=== PATIENT | female | born 1985 | race Caucasian/White ===

== ENCOUNTER 2017-10-10 10:30 | Observation (INO) | payer BC ==
[2017-10-10] MEDS ORDERED: Acetaminophen TAB* 325 MG PO PRN (11:02)
[2017-10-10] MEDS ORDERED: Morphine INJ* 2 MG/ML 1 ML CARPUJECT IV PRN ×2 (11:02→14:37)
[2017-10-10] MEDS ORDERED: NS 0.9% 1000 ML* 1,000 ML IV SCH (11:15)
[2017-10-10 12:01] LABS: ABS Basophils 0.1 10^3/ul (0-0.2); ABS Eosinophils 0.1 10^3/ul (0-0.6); ABS Lymphocytes 2.5 10^3/ul (1.0-4.8); ABS Monocytes 0.9 10^3/ul (0-0.8); ABS Neutrophils 6.4 10^3/ul (1.5-7.7); ABS Nucleated RBC 0 10^3/ul; Hematocrit 43 % (35-47); Lymphocyte % 25.7 % (25-47); Mean Corpuscular HGB Conc 35 g/dl (31-36); Mean Corpuscular Hemoglobin 31 pg (27-31); Mean Corpuscular Volume 88 fL (80-97); Mean Platelet Volume 7.6 um3 (7.4-10.4); Nucleated Red Blood Cells % 0.1; Platelet Count 313 10^3/ul (150-450); Red Blood Count 4.86 10^6/ul (4.0-5.4); Red Cell Distribution Width 13 % (10.5-15); White Blood Count 9.9 10^3/ul (3.5-10.8)
[2017-10-10 12:19] LABS: EGFR Non-African American 86.7 (>60)
[2017-10-10] MEDS ORDERED: Iohexol 300* (CONTRAST) 10 ML SDV IV ONE (13:07)
--- NOTE | 2017-10-10 14:17 | RAD ---
CLINICAL HISTORY: Abdominal pain, appendicitis COMPARISON: October 05, 2017 TECHNIQUE: Multiple contiguous axial CT scans were obtained of the abdomen and pelvis after the administration of intravenous contrast. Coronal and sagittal multiplanar reformations are submitted for review. Oral contrast was administered. Delayed images were obtained through the abdomen and pelvis. FINDINGS: LUNG BASES: The lung bases are clear. LIVER: The liver is diffusely low in attenuation compared to the spleen. There are no focal hepatic parenchymal masses. BILE DUCTS: There is no intrahepatic or extrahepatic biliary dilatation. GALLBLADDER: The gallbladder is normal, without pericholecystic inflammatory change. PANCREAS: The pancreas is normal, without mass or ductal dilatation. SPLEEN: Normal in size and appearance. UPPER GI TRACT: The upper GI tract is unremarkable. SMALL BOWEL AND MESENTERY: The small bowel is normal in contour, course, and caliber. There is no obstruction or dilatation. COLON: The colon is normal in contour, course, caliber. There is no pericolonic inflammatory change. There is a tubular, vermiform, hollow viscus that is blind ending, and originates from the cecum, consistent with the appendix. This measures up to 60.7 cm in caliber, decreased from the previous examination. There is gas within the lumen of the appendix. There is no appreciable appendicolith. There is no periappendiceal inflammatory change. The appendix is best seen on coronal images 34 through 37. ADRENALS: Normal bilaterally. KIDNEYS: The kidneys are normal in shape, size, contour, and axis. There is no hydronephrosis or nephrolithiasis. BLADDER: The bladder is smooth in contour. PELVIC ORGANS: The uterus and adnexa are grossly normal for technique. AORTA: The aorta is normal. IVC: Unremarkable LYMPH NODES: There is no lymphadenopathy by size criteria. ABDOMINAL WALL: There is no evidence for abdominal wall hernia. BONES AND SOFT TISSUES: The bones and soft tissues are unremarkable. OTHER: None IMPRESSION: THE APPENDIX IS AT THE UPPER LIMITS OF NORMAL IN SIZE, BUT HAS DECREASED IN CALIBER COMPARED TO OCTOBER 05, 2017. THERE IS NO PERIAPPENDICEAL INFLAMMATORY CHANGE. FATTY INFILTRATION OF LIVER.
[2017-10-10] MEDS ORDERED: Ondansetron INJ* 2 MG/ML VIAL IV PRN (14:31)
[2017-10-10] MEDS ORDERED: Famotidine IV* 10 MG/ML 2 ML (20 mg) IV ONE (14:36)
[2017-10-10] MEDS ORDERED: Buffered Lidocaine 0.9% SYRIN* 5 ML/SYR SYRINGE INTRADERM ONE (14:36)
[2017-10-10] MEDS ORDERED: Naloxone* 0.4 MG/ML 1 ML VIAL IV PRN (14:37)
[2017-10-10] MEDS ORDERED: PROCHLORPERAZINE INJ 5 MG/ML 2 ML VIAL IV PRN (14:37)
[2017-10-10] MEDS ORDERED: fentaNYL* 50 MCG/ML 2 ML VIAL (100 MCG VIAL) IV PRN (14:37)
[2017-10-10] MEDS ORDERED: Scopolamine 1.5 mg* PATCH TRANSDERM PRN (14:37)
[2017-10-10] MEDS ORDERED: DiMENhydriNATE IV* 50 MG/ML VIAL IV PUSH PRN (14:37)
[2017-10-10] MEDS ORDERED: Midazolam* 1 MG/ML 5 ML VIAL (5 MG) ONE (14:44)
[2017-10-10] MEDS ORDERED: fentaNYL* 50 MCG/ML 2 ML VIAL (100 MCG VIAL) ONE (14:44)
[2017-10-10] MEDS ORDERED: Atracurium* 10 MG/ML 10 ML VIAL ONE (14:44)
--- NOTE | 2017-10-10 14:47 | PN ---
Progress Note - Progress Note Date of Service: 10/10/17 SOAP: Subjective: CT scan done reviewed just now-some minimal thickening and mild dilation of the appendix, consistent with the recent diagnosis of appendicitis. No abscess, fluid or other acute change noted in the study. I reviewed these findings with her and her . She continues to complain of fairly severe right lower quadrant abdominal pain and nausea that has not improved on 5 days of oral antibiotics. She has had a poor appetite and feels sick. Her exam now shows right lower abdominal pain with guarding and rigidity in the right lower quadrant. I feel that she has "failed" antibiotic treatment of her acute appendicitis and I think that we need to consider appendectomy. I don't think that further oral or IV antibiotics will probably improve her symptoms and this point, although we do not have a great deal of experience here with the non-operative management of uncomplicated treatment of acute appendicitis I think that most of the literature would support proceeding with appendectomy if the patient was not improving after this duration of antibiotic treatment. My recommendation is laparoscopic appendectomy today. I discussed the procedure with them and they would like to proceed in this direction. PLAN: Laparoscopic appendectomy, possible open appendectomy today. The procedure was discussed with her, and the risks of, but not limited to, of bleeding, infection, abscess, injury to peritoneal and retroperitoneal structures, possibility of an open procedure, anesthesia and blood clots were discussed. She will give her consent to proceed.
[2017-10-10] MEDS ORDERED: Famotidine IV* 10 MG/ML 2 ML (20 mg) ONE (14:48)
[2017-10-10] MEDS ORDERED: Bupivacaine 0.25% SDV* 30 ML ONE (15:26)
[2017-10-10] MEDS ORDERED: Lidocaine 2% PF * 5 ML VIAL ONE (16:01)
[2017-10-10] MEDS ORDERED: Propofol* 10 MG/ML 20 ML BTL IV PUSH ONE (16:01)
[2017-10-10] MEDS ORDERED: Morphine INJ* 10 MG/ML 1 ML CARPUJECT ONE (16:01)
[2017-10-10] MEDS ORDERED: PROCHLORPERAZINE INJ 5 MG/ML 2 ML VIAL ONE (16:01)
[2017-10-10] MEDS ORDERED: Ketorolac INJ* 30 MG/ML 1 ML VIAL ONE ×2 (16:01→16:51)
[2017-10-10] MEDS ORDERED: Dexamethasone IV* 4 MG/ML 1 ML (4 MG) ONE (16:01)
[2017-10-10] MEDS ORDERED: EPHEDrine (Pressors)* 50 MG/ML VIAL ONE (16:01)
[2017-10-10] MEDS ORDERED: Glycopyrrolate IV* 0.2 MG/ML 1 ML VIAL ONE (16:01)
[2017-10-10] MEDS ORDERED: Scopolamine 1.5 mg* PATCH ONE (16:01)
[2017-10-10] MEDS ORDERED: Ondansetron INJ* 2 MG/ML VIAL ONE (16:01)
[2017-10-10] MEDS ORDERED: oxyCODONE/Acetamin 5/325 MG* TAB ONE (17:35)
[2017-10-10] MEDS: oxyCODONE/Acetamin 5/325 MG* TAB PO PRN ×2 (17:37→17:38)
[2017-10-10 18:47] VITALS: BP 116/76
--- NOTE | 2017-10-11 14:48 | OP ---
CC: Dr. Shima Brito * DATE OF OPERATION: 10/10/17 - ROOM #351 DATE OF : 87 SURGEON: Efren Perales MD [employer] ARCHITECT: Bailey Richmond NP ANESTHESIOLOGIST: Dr. Adams. ANESTHESIA: General with local. PRE-OP DIAGNOSIS: Acute appendicitis. POST-OP DIAGNOSIS: Acute appendicitis. OPERATIVE PROCEDURE: Laparoscopic appendectomy. ESTIMATED BLOOD LOSS: Minimal. WOUND CLASSIFICATION: Three. COMPLICATIONS: None. DRAINS: None. SPECIMEN: Appendix. FINDINGS: The appendix was thickened and discolored with edematous mesentery consistent with acute appendicitis. No evidence of gangrene, perforation or abscess. BRIEF HISTORY: Mrs. Astrid Zarco is a 31-year-old woman who was referred to the office today. She had been in [place], [place] last weekend where she developed abdominal discomfort, was seen in the emergency room, had a CAT scan there; it was reviewed and read as acute appendicitis. She was treated with IV and oral antibiotics, after 24 hours discharged home with followup here back in [place] where she lives. This whole week she has been having persistent right lower quadrant abdominal pain, anorexia with some nausea, but no fever, shakes or chills. I saw her for the first time in the office this morning and a laboratory workup was unremarkable with a normal white blood cell count of 9. She had significant pain in the right lower quadrant and a CT scan was repeated to rule out abscess or perforation and there was a mildly thickened appendiceal wall without evidence of abscess, extraluminal air or fluid, slightly less inflammation than that study done last weekend. After a long discussion with the patient and her , it was felt that she is not responding to oral antibiotics and we have decided to proceed with a laparoscopic appendectomy for definitive treatment of what appears to be acute appendicitis. DESCRIPTION OF PROCEDURE: Written informed consent was obtained, the abdomen was marked with indelible ink. I did not give preoperative antibiotics. She was taken to the operating room, placed in the supine position. Sequential compression devices and warming blanket were applied. The abdomen was prepped and draped in the usual sterile fashion. Time-out verification was completed. Initially, a vertical incision was made just below the umbilicus at the midline , and the peritoneal cavity was entered under direct vision. A 12-mm trocar was inserted. The abdomen was insufflated to 15 mmHg. Under direct vision, a 5 mm port was placed in the left lower abdominal wall and a second 5 mm port was placed in the suprapubic position. Upon evaluating the abdomen, there was no evidence of fluid or peritoneal irritation. I was able to identify the terminal ileum and this was normal. The cecum was unremarkable. The right ovary and fallopian tube was identified and both were normal. The sigmoid colon appeared to be markedly distended but was normal. I did not visualize or evaluate the left ovary or the uterus; however, these both had appeared normal on the CT scan. The appendix was then identified. It was intraperitoneal. It was whitish in color, indurated and somewhat hyperemic. The mesentry was edematous. There was no evidence, however, of purulence, gangrenous change, or evidence of perforation. The mesoappendix was then divided sequentially with the LigaSure from the distal appendix down to the base of the appendix. Cecum was unremarkable. Once this was complete, I amputated the appendix with an Endo-GRAHAM quevedo load of 45 mm stapler. The appendix was then placed in EndoCatch bag and brought to the umbilical incision. Hemostasis was assured. The staple line was intact. No other abnormalities were noted. All ports removed under the direct vision of the camera. There was no abdominal wall bleeding. The umbilical fascia was closed with interrupted 0 Polysorb suture. The skin at all three incisions was approximated with subcuticular 4-0 Polysorb suture. Steri-Strips were applied. The patient tolerated the procedure well and was taken to recovery room in stable condition. [id number]/[facility] #: [id number] BHAKTI
[2017-10-13] MEDS ORDERED: Scopolamine PATCH Remove* 1 NOTE MISC PATCH OFF ONE (14:41)
--- NOTE | 2017-10-16 08:17 | DS ---
CC: [facility]; Dr. Shima Brito. * DISCHARGE SUMMARY: DATE OF ADMISSION: 10/10/17 DATE OF DISCHARGE: 10/10/17 PRINCIPAL DIAGNOSIS: Acute appendicitis. PROCEDURE PERFORMED: Laparoscopic appendectomy. CONDITION AT DISCHARGE: Good. DISPOSITION: To home. INSTRUCTIONS FOR DISCHARGE: The patient did not require any further antibiotics. She was given a prescription for Percocet as needed for discomfort but was instructed and encouraged to use nonsteroidal pain medications and Tylenol as needed for pain. Complete written instructions as to wound care, diet, and activity were all given. BRIEF HISTORY: Ms. Astrid Zarco is a 31-year-old woman who was initially seen in the office on the day of surgery. She had been in [place] 5 days earlier for a weekend wedding and developed abdominal discomfort and presented to a hospital there. There a CT scan was done, it showed findings consistent with early acute appendicitis. After being seen in surgical consultation, she was treated with IV antibiotics and discharged home after 24 hours after decision was made to proceed with nonoperative management. Over the course of the past 4 to 5 days, she had persistent nausea and right lower quadrant abdominal pain with no fever. Laboratory values repeated, showed a white blood cell count which was normal. A followup CT scan done on the morning of presentation showed no evidence of abscess but findings consistent with acute appendicitis. After discussion with her and her regarding her clinical presentation as well as her CAT scan findings and history, decision was made to be taken to the operating room where she underwent a laparoscopic appendectomy for what appeared to be acute appendicitis. She tolerated this well and was discharged home from the recovery room. Final pathology at the time of this dictation showed acute appendicitis. Follow up in the office was made in 5 to 7 days. [id number]/[facility] #: [id number] [facility] SYSTEM[facility]ook
== END 2017-10-10 18:41 | disposition home or self-care (01) ==
LOC: INTOOBSV 10:30 → SSU 10:30
PROVIDERS: ADMIT Surgery; ATTEND Surgery
PROC: 0DTJ4ZZ Resection of Appendix, Percutaneous Endoscopic Approach (ICD-10-PCS; principal; 2017-10-10 15:40)
DX: K35.80 Unspecified acute appendicitis (principal)
CPT/HCPCS: 36415; 74177; 80053; 84702; 85025; 88304; A9270-GY; C1776; G0378; J0780; J1100; J1885; J2250; J2270; J2405; J2704; J3010; Q9967

== ENCOUNTER → 2018-06-01 08:09 | Day surgery (SDC) | payer BC ==
[~2018-06-01 08:09] MED LIST: Buffered Lidocaine 0.9% SYRIN* 5 ML/SYR SYRINGE INTRADERM ONE; Dexamethasone IV* 4 MG/ML 1 ML (4 MG) IV SLOW PU ONE; Dexamethasone IV* 4 MG/ML 1 ML (4 MG) ONE; Famotidine IV* 10 MG/ML 2 ML (20 mg) IV ONE; Famotidine IV* 10 MG/ML 2 ML (20 mg) ONE; Ketorolac INJ* 30 MG/ML 1 ML VIAL ONE; Naloxone* 0.4 MG/ML 1 ML VIAL IV PRN; Ondansetron INJ* 2 MG/ML VIAL IV PRN; Propofol* 10 MG/ML 20 ML BTL IV PUSH ONE; fentaNYL* 50 MCG/ML 2 ML VIAL (100 MCG VIAL) IV PRN; fentaNYL* 50 MCG/ML 2 ML VIAL (100 MCG VIAL) ONE
[2018-06-01 09:24] LABS: ABS Basophils 0 10^3/ul (0-0.2); ABS Eosinophils 0.1 10^3/ul (0-0.6); ABS Lymphocytes 1.9 10^3/ul (1.0-4.8); ABS Monocytes 0.6 10^3/ul (0-0.8); ABS Neutrophils 5.9 10^3/ul (1.5-7.7); ABS Nucleated RBC 0 10^3/ul; Eosinophil % 1.6 % (0-6); Hematocrit 41 % (35-47); Hemoglobin 14.1 g/dl (12.0-16.0); Lymphocyte % 22.7 % (25-47); Mean Corpuscular HGB Conc 35 g/dl (31-36); Mean Corpuscular Hemoglobin 31 pg (27-31); Mean Corpuscular Volume 88 fL (80-97); Nucleated Red Blood Cells % 0.1; Platelet Count 308 10^3/ul (150-450); Red Blood Count 4.62 10^6/ul (4.00-5.40); Red Cell Distribution Width 13 % (10.5-15); White Blood Count 8.6 10^3/ul (3.5-10.8)
[2018-06-01 11:02] VITALS: BP 110/70
--- NOTE | 2018-06-01 21:50 | OP ---
DATE OF OPERATION: 06/01/18 - [facility] DATE OF : 87 SURGEON: Kiet De Souza MD WARP TENSION TESTER: None. ANESTHESIA: General endotracheal tube. PRE-OP DIAGNOSIS: Missed . POST-OP DIAGNOSES: Missed . OPERATIVE PROCEDURE: D and C. ESTIMATED BLOOD LOSS: 50 cc. SPECIMEN: Includes products of conception. FINDINGS: Include an 8-week mid positioned uterus. Cervix, vagina, and vulva appeared normal. DESCRIPTION OF PROCEDURE: The patient identified, procedure identified as a D and C. The patient was taken to the operating room, prepped and draped in the usual fashion in dorsal lithotomy position under general anesthesia. Two single -tooth tenaculums were placed in the anterior lip of the cervix. Cervix was dilated up to #30 Rudolph dilator. The #8 suction curette was inserted and suction curettage with a little tissue obtained. A serrated curette was inserted and sharp curettage was performed with moderate amount of tissue obtained and membranes. The polyp forceps inserted. No further tissue was obtained using this. The suction curette was again reinserted and a little tissue was obtained. A gritty sensation was felt throughout the circumference of the uterus after this with a sharp curettage and good hemostasis was verified. All instruments were removed from vagina. Good hemostasis was verified and all sponge and instrument counts were correct. The patient returned to the recovery room in stable condition. [id number]/[facility] #: [id number] MTDD
== END | disposition home or self-care (01) ==
LOC: OR 08:09
PROVIDERS: ATTEND Obstetrics & Gynecology
DX: O02.1 Missed abortion (principal); F41.8 Other specified anxiety disorders; E55.9 Vitamin D deficiency, unspecified; R10.9 Unspecified abdominal pain; R11.2 Nausea with vomiting, unspecified
CPT/HCPCS: 36415; 85025; 86850; 86900; 86901; 88305; J1100; J1885; J2704; J3010